=== PATIENT | male | born 1980 | race Two or more races ===

== ENCOUNTER → 2016-04-08 | Emergency (ER) | payer OTHER ==
[~2016-04-08] VITALS: Ht 177.8 cm; Wt 72.6 kg
[~2016-04-08] MED LIST: CLINDAMYCIN 900 MG in IV D5W 100 ML IV ONE; CLINDAMYCIN 900 MG/6 ML VIAL ONE; CT SWABBABLE VALVE TRANS SET 1 EA INFUS.SET MC ONE; IOHEXOL-300 100 ML VIAL IV ONE; IV D5W 100 ML IV ONE; IV NS 0.9% 250 ML IV ONE; IV SET PRIMARY 1 EA INFUS.SET MC ONE
[2016-04-08 23:21] VITALS: BP 145/89
[2016-04-08 23:53] LABS: BASOPHILS % (AUTO) 0.5 % (0.0-2.0); DIFF TOTAL % 100 %; EOSINOPHILS # (AUTO) 0.2 /CMM (0.0-0.7); EOSINOPHILS % (AUTO) 3.2 % (0.0-6.0); HEMATOCRIT 46 % (39-51); HEMOGLOBIN 15.7 g/dL (13.5-17.5); LYMPHOCYTES # (AUTO) 2.2 /CMM (0.8-4.8); LYMPHOCYTES % (AUTO) 38.1 % (20.0-44.0); MEAN CORPUSCULAR HEMOGLOBIN 33 PG (26.0-33.0); MEAN CORPUSCULAR HGB CONC 34 g/dl (31.0-36.0); MEAN CORPUSCULAR VOLUME 96 fL (80-96); MONOCYTES # (AUTO) 0.5 /CMM (0.1-1.30); MONOCYTES % (AUTO) 9.2 % (2.0-12.0); NEUTROPHILS # (AUTO) 2.8 /CMM (1.8-8.9); PLATELET COUNT (AUTO) 218 /CMM (150-450); RED BLOOD CELL COUNT(AUTO) 4.83 MIL/uL (4.5-6.0); WHITE BLOOD COUNT (AUTO) 5.7 K/uL (4.3-11.0)
[2016-04-09 00:02] LABS: CALCIUM, SERUM 9.1 mg/dL (8.5-10.1); CREATININE 0.8 mg/dL (0.6-1.3); POTASSIUM 3.9 mmol/L (3.5-5.1)
== END | disposition home or self-care (01) ==
LOC: ER 22:38
DX: L03.211 Cellulitis of face (principal); L72.3 Sebaceous cyst
CPT/HCPCS: 36415; 70487-TC; 80048-TC; 83605-TC; 85025-TC; 87040-TC; 87081-TC; A4606; J3490; J7050; J7060; Q9967; Z7610